=== PATIENT | male | born 1980 | race American Indian/Alaskan Native ===

== ENCOUNTER 2018-12-27 12:53 | Emergency (ER) | payer SELFPAY ==
[2018-12-27] MEDS ORDERED: TETANUS,DIPH,PERTUSS(ACELL) VACCINE 0.5 ML SYRINGE IM ONE ×2 (13:09→15:45)
--- NOTE | 2018-12-27 13:09 | Emergency Department Report ---
Blank Doc - Documentation Documentation: 38-year-old male that presents with right index finger lac that occurred yeste rday at 1 pm. Denies any UTD with tetanus. This initial assessment/diagnostic orders/clinical plan/treatment(s) is/are subject to change based on patient's health status, clinical progression and re- assessment by fellow clinical providers in the ED. Further treatment and workup at subsequent clinical providers discretion. Patient/guardians urged not to elope from the ED as their condition may be serious if not clinically assessed and managed. Initial orders include: 1- Patient sent to [facility] for further evaluation and treatment 2- xrays 3- tetanus
[2018-12-27 13:15] VITALS: BP 126/74
--- NOTE | 2018-12-27 14:05 | XRay Report ---
RIGHT FINGERS, 3 VIEWS INDICATION: Right third finger pain and laceration, injury with work [place] one day ago. COMPARISON: None. 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 Multiple chip fractures of the tuft of the distal phalanx of the third digit are also identified. The remaining bony structures and joint spaces are unremarkable. No significant DJD. Signer Name: Fahad Argueta Jr, MD Signed: 12/27/2018 2:00 PM Workstation Name: [id number]
--- NOTE | 2018-12-27 15:41 | Emergency Department Report ---
ED Upper Extremity Inj HPI - General Chief Complaint: Extremity Injury, Upper Stated Complaint: RT FINGER CUT/INECTED/PAIN Time Seen by Provider: 12/27/18 13:07 Source: patient Mode of arrival: Ambulatory Limitations: No Limitations - History of Present Illness Initial Comments: Patient is 38 years old male with no significant past medical history. Patient presented to the ER complaining of right third finger crush injury. Patient stated that this is happened yesterday around 1 PM at [place] but he did not go to ER he went to an urgent care where they just did a dressing. Patient denied any other injuries. Complaint: Injury to:: right, finger Other Extremity Injury: Fingers: Right Other Injuries: none Context: crush Associated Symptoms: denies other symptoms - Related Data Allergies Allergy/AdvReac Type Severity Reaction Status Date / Time No Known Allergies Allergy Unverified 12/27/18 13:07 ED Review of Systems ROS: Stated complaint: RT FINGER CUT/INECTED/PAIN Other details as noted in HPI Comment: All other systems reviewed and negative Constitutional: denies: chills, fever ED Past Medical Hx - Past Medical History Previous Medical History?: No - Surgical History Additional Surgical History: L femur - Social History Smoking Status: Current Every Day Smoker Substance Use Type: None, Marijuana ED Physical Exam - General Limitations: No Limitations General appearance: alert - Head Head exam: Present: atraumatic - ENT ENT exam: Present: normal exam - Respiratory Respiratory exam: Present: normal lung sounds bilaterally - Cardiovascular Cardiovascular Exam: Present: regular rate - GI/Abdominal GI/Abdominal exam: Present: soft. Absent: distended, tenderness, guarding, rebound - Expanded Upper Extremity Exam Right Hand Wrist exam: Present: tenderness, laceration, amputation (distal third phalanx soft tissue.) Neuro motor exam: Present: wrist extension intact, thumb opposition intact, thumb IP flexion intact, thumb adduction intact, fingers 2-5 abduction intact Neurosensory exam: Present: 2-point discrimination, radial nerve intact, ulnar nerve intact, median nerve intact Vascular: Present: normal capillary refill - Back Exam Back exam: Present: normal inspection - Neurological Exam Neurological exam: Present: alert, oriented X3, CN II-XII intact - Psychiatric Psychiatric exam: Present: normal mood ED Course Vital Signs 12/27/18 13:07 Temperature 98.4 F Pulse Rate 92 H Respiratory 16 Rate Blood Pressure 126/74 O2 Sat by Pulse 99 Oximetry ED Medical Decision Making - Radiology Data Radiology results: report reviewed - Medical Decision Making X-ray showed near amputation of soft tissue of the distal third finger with chips fracture. No laceration to repair. Patient given a tetanus vaccination and finger splint placed and patient advised to follow-up with his primary care physician for referral to a hand surgeon. Critical care attestation.: If time is entered above; I have spent that time in minutes in the direct care of this critically ill patient, excluding procedure time. ED Disposition Clinical Impression: Finger laceration, Finger fracture, right Disposition: DC-01 TO HOME OR SELFCARE Is pt being admited?: No Condition: Stable Instructions: Finger Laceration (ED), Finger Fracture (ED) Referrals: [facility] [Provider Group] - 3-5 Days
== END 2018-12-27 16:05 | disposition home or self-care (01) ==
LOC: ED 12:53
DX: S62.632A Displaced fracture of distal phalanx of right middle finger, initial encounter for closed fracture (principal); S61.212A Laceration without foreign body of right middle finger without damage to nail, initial encounter; F17.200 Nicotine dependence, unspecified, uncomplicated; F12.10 Cannabis abuse, uncomplicated; W22.8XXA Striking against or struck by other objects, initial encounter; Y93.89 Activity, other specified; Y92.89 Other specified places as the place of occurrence of the external cause; Y99.8 Other external cause status
CPT/HCPCS: 90471; 90715

== ENCOUNTER 2019-02-27 12:00 | Emergency (ER) | payer SELFPAY ==
[2019-02-27 12:15] VITALS: BP 107/57
--- NOTE | 2019-02-27 16:10 | Emergency Department Report ---
Chief Complaint: Extremity Injury, Upper Stated Complaint: FINGER LAC Time Seen by Provider: 02/27/19 15:58 - HPI History of Present Illness: This is a 38 y.o. M. that presents to the ER for referral to a hand specialist for follow up. Patient states he was seen here last week and diagnosed with a fracture and laceration to right distal 3rd finger. Patient states he had a work related injury while making [employer]. States his job is now wanting to send everything through [employer] for payment. His discharge paperwork was for follow up with [facility] and he can't get an appointment. Patient denies new symptoms such as discharge, redness, - Exam Vital Signs: Vital Signs 02/27/19 12:14 Temperature 98.8 F Pulse Rate 88 Respiratory 18 Rate Blood Pressure 107/57 O2 Sat by Pulse 97 Oximetry MSE screening note: Focused history and physical exam performed. Due to findings the following was ordered: ED Disposition for MSE Disposition: MED SCREENING EXAM-LEFT Condition: Stable Instructions: Finger Fracture (ED) Additional Instructions: Follow up with a Orthopedic Surgeon or Hand Specialist from the list provided below. Return to the ER with worsening symptoms. Referrals: PRIMARY CARE, [Primary Care Provider] - 3-5 Days CASEY NEFF MD [Staff Physician] - 3-5 Days [facility] [Provider Group] - 3-[address] [facility] [Provider Group] - 3-5 Days Forms: Work/School Release Form(ED) Time of Disposition: 17:13
== END 2019-02-27 17:22 | disposition left against medical advice (07) ==
LOC: ED 12:00
DX: S61.212A Laceration without foreign body of right middle finger without damage to nail, initial encounter (principal); Z53.21 Procedure and treatment not carried out due to patient leaving prior to being seen by health care provider; X58.XXXA Exposure to other specified factors, initial encounter; Y93.89 Activity, other specified; Y92.89 Other specified places as the place of occurrence of the external cause; Y99.8 Other external cause status